=== PATIENT | male | born 1965 | race Caucasian/White ===

== ENCOUNTER 2017-11-07 10:41 | Inpatient (IN) | payer OTHER ==
[2017-11-07 10:57] VITALS: BMI 25.0
--- NOTE | 2017-11-07 14:15 | HP ---
COWS - Scale Resting Pulse: 1= [place] 81-100 Sweatin= Chills/Flushing Restless Observation: 3= Extraneous Movement Pupil Size: 0= Normal to Room Light Bone or Joint Aches: 4=Acute Joint/Muscle Pain Runny Nose/ Eye Tearin= Nasal Congestion GI Upset > 30mins: 2= Nausea/Diarrhea Tremor Observation: 1= Tremor [place], Not Seen Yawning Observation: 1= 1-2x During Session Anxiety or Irritability: 2=Irritable/Anxious Goose Flesh Skin: 0=Smooth Skin COWS Score: 16 Admission [facility] Chief Complaint: HEROIN WITHDRAWAL SX Allergies/Adverse Reactions: Allergies Allergy/AdvReac Type Severity Reaction Status Date / Time No Known Allergies Allergy Verified 11/07/17 11:17 History of Present Illness: 51 Y/O MALE WITH A HX OF HEROIN DEPENDENCE SEEKING DETOX TX. FIRST TIME HERE. Exam Limitations: No Limitations - Ebola screening Have you traveled outside of the country in the last 21 days: No Have you had contact with anyone from an Ebola affected area: No Have you been sick,other than usual withdrawal symptoms: No Do you have a fever: No - Review of Systems Constitutional: Chills, Night Sweats, Changes in sleep (WHEN DETOXING. NO MEDS BUT WILLING TO TRY BENADRYL HS) EENT: reports: Blurred Vision (READS WITH GLASSES), Tearing, Nose Congestion, Dental Problems (MISSING TEETH) Respiratory: reports: No Symptoms reported Cardiac: reports: Lightheadedness GI: reports: Constipated (OIC), Diarrhea, Nausea, Vomiting : reports: No Symptoms Reported, Other (UMBILCAL AND INGUINAL HERNIA SX ON ) Musculoskeletal: reports: Back Pain, Joint Pain (LEFT SHOULDER SX IN 09/18/17), Muscle Pain Integumentary: reports: Bruising (IVD INJ SITE SCARS ON BOTH FOREARMS), Sweating Neuro: reports: Headache, Numbness, Tingling, Dizziness Endocrine: reports: No Symptoms Reported Hematology: reports: No Symptoms Reported Psychiatric: reports: Orientated x3 Other Systems: Reviewed and Negative Patient History - Patient Medical History Hx Anemia: No Hx Asthma: No Hx Chronic Obstructive Pulmonary Disease (COPD): No Hx Cardiac Disorders: No Hx Hypertension: No Hx Hypercholesterolemia: No HX Cerebrovascular Accident: No Hx Seizures: No Hx Diabetes: No Hx Gastrointestinal Disorders: No Hx Genitourinary Disorders: No Hx Sexually Transmitted Disorders: No (DENIES) Hx Renal Disease (ESRD): No Hx Human Immunodeficiency Virus (HIV): No (NEGATIVE HX-WANTS TESTED) Hx Hepatitis C: No (DENIES-WANTS TESTED) Hx Depression: No (DENIES) Hx Suicide Attempt: No (DENIES PREVIOUS OR PRESENT S/H/I TODAY) Hx Bipolar Disorder: No Hx Schizophrenia: No - Patient Surgical History Past Surgical History: Yes Hx Abdominal Surgery: Yes (Umbillical and inguinal hernia repair.) Hx Orthopedic Surgery: Yes (R knee sx ACL and meniscus repair 2011) Other Surgical History: L shoulder sx in 09/18/17 [place] Anesthesia Reaction: No - PPD History Previous Implant?: Yes Documented Results: Negative w/o proof Implanted On Prior [facility] Admission?: No PPD to be Administered?: Yes - Reproductive History Patient is a Female of Child Bearing Age (11 -55 yrs old): No (MALE) - Smoking Cessation Smoking history: Current every day smoker Have you smoked in the past 12 months: Yes Aproximately how many cigarettes per day: 20 Hx Chewing Tobacco Use: No Initiated information on smoking cessation: Yes 'Breaking Loose' booklet given: 11/07/17 - Substance & Tx. History Hx Alcohol Use: No Hx Substance Use: Yes (HEROIN) Substance Use Type: Heroin Hx Substance Use Treatment: Yes (LAST TX AT [facility]) - Substances Abused Heroin Route: Injection Frequency: Daily Amount used: 2 bags Age of first use: 47 Date of Last Use: 11/06/17 Family Disease History - Family Disease History Family Disease History: Heart Disease: Mother (VALVE REPLACEMENT/ALZHEIMERS- ), Other: Father (ALZHEIMERS-ALIVE) Admission Physical Exam S - Vital Signs Vital Signs: Vital Signs - 24 hr 11/07/17 10:55 Temperature 97.3 F L Pulse Rate 83 Respiratory 18 Rate Blood Pressure 124/85 - Physical General Appearance: Yes: Moderate Distress, Irritable, Anxious HEENTM: Yes: EOMI, Normocephalic, RIKI, Pharynx Normal Respiratory: Yes: Chest Non-Tender, Lungs Clear, Normal Breath Sounds, No Respiratory Distress Neck: Yes: No masses,lesions,Nodules, Supple, Trachea in good position Breast: Yes: Breast Exam Deferred Cardiology: Yes: Regular Rhythm, Regular Rate, S1, S2 Abdominal: Yes: Normal Bowel Sounds, Non Tender, Flat, Soft Genitourinary: Yes: Other (N/C) Back: Yes: Within Normal Limits Musculoskeletal: Yes: full range of Motion, Gait Steady Extremities: Yes: Normal Range of Motion, Non-Tender Neurological: Yes: i o psychologist II-XII NML intact, Fully Oriented, Alert, Motor Strength 5/5 Integumentary: Yes: Dry, Warm, Track [place] (IVD INJ TRACKS ON BOTH FOREARMS-NO REDNESS OR SWELLING) - Diagnostic (1) Opioid dependence with withdrawal Current Visit: Yes Status: Acute Cleared for Admission [facility] - Detox or Rehab [facility] Level of Care: Medically Managed Detox Regimen/Protocol: Methadone [facility] Breath Alcohol Content Breath Alcohol Content: 0 Urine Drug Screen - Results Drug Screen Negative: No Urine Drug Screen Results: OPI-Opiates
[2017-11-07] MEDS ORDERED: IBUPROFEN 400 MG TABLET (FP) PO PRN (14:58)
[2017-11-07] MEDS ORDERED: NICOTINE POLACRILEX 4 MG GUM BUC PRN (14:58)
[2017-11-07] MEDS ORDERED: ACETAMINOPHEN 325 MG TABLET (FP) PO PRN (14:58)
[2017-11-07] MEDS ORDERED: LOPERAMIDE HCL 2 MG CAPSULE PO PRN (14:58)
[2017-11-07] MEDS ORDERED: P-EPHED 60MG/TRIPROLIDI 2.5MG TABLET PO PRN (14:58)
[2017-11-07] MEDS ORDERED: MAGNESIUM CITRATE 300 ML BOTTLE PO PRN (14:58)
[2017-11-07] MEDS ORDERED: MAGNESIUM HYDROX 2400MG/30ML ORAL SUSPENSION 30 ML CUP PO PRN (14:58)
[2017-11-07] MEDS ORDERED: guaiFENesin/D-METHORPHAN HB 10 ML UNIT-DOSE CUPS PO PRN (14:58)
[2017-11-07] MEDS ORDERED: MENTHOL/PHENOL 1 EACH UD MM PRN (14:58)
[2017-11-07] MEDS ORDERED: METHADONE HCL 10 MG TABLET (FOR DETOX USE ONLY) PO ONE ×2 (15:25→23:00)
[2017-11-07] MEDS: NICOTINE 21 MG/24 HOURS TOPICAL PATCH TD SCH (17:47)
[2017-11-07] MEDS ORDERED: METHADONE HCL 10 MG TABLET (FOR DETOX USE ONLY) ONE (17:53)
[2017-11-07 21:54] LABS: URINE APPEARANCE CLEAR; URINE BILIRUBIN NEGATIVE (NEGATIVE); URINE BLOOD NEGATIVE (NEGATIVE); URINE COLOR STRAW; URINE GLUCOSE (UA) NEGATIVE (NEGATIVE); URINE KETONE NEGATIVE (NEGATIVE); URINE LEUK ESTERASE NEGATIVE (NEGATIVE); URINE NITRITE NEGATIVE (NEGATIVE); URINE PROTEIN NEGATIVE (NEGATIVE); URINE UROBILINOGEN NEGATIVE mg/dL (0.2-1.0)
[2017-11-07] MEDS: THIAMINE HCL 100 MG TABLET (FP) PO SCH (22:27)
[2017-11-08 09:57] LABS: HEMATOCRIT 42.8 % (35.4-49); HEMOGLOBIN 14.3 GM/dL (11.7-16.9); MCH 29.7 pg (25.7-33.7); MCHC 33.4 g/dl (32.0-35.9); MEAN CELL VOLUME 89.2 fl (80-96); MEAN PLT VOLUME 9.1 fl (7.5-11.1); PLATELET COUNT 313 K/MM3 (134-434); RDW 12.7 % (11.9-15.9); WHITE BLOOD COUNT 10.6 K/mm3 (4.0-10.0)
[2017-11-08] MEDS ORDERED: METHADONE HCL 10 MG TABLET (FOR DETOX USE ONLY) PO ONE (10:00)
[2017-11-08] MEDS: PRENATAL VITAMINS W/ FOLIC ACID TABLET (FP) PO SCH (10:10)
[2017-11-08] MEDS: diazePAM 5 MG TABLET PO PRN ×2 (10:11→22:15)
[2017-11-08] MEDS: NICOTINE 21 MG/24 HOURS TOPICAL PATCH TD SCH (10:11)
[2017-11-08 10:12] LABS: CHLORIDE 105 mmol/L (98-107); POTASSIUM 4.3 mmol/L (3.5-5.1); SODIUM 137 mmol/L (136-145)
[2017-11-08 10:39] LABS: ALBUMIN 4.1 g/dl (3.4-5.0); ALK PHOS 126 U/L (45-117); ANION GAP 8 (8-16); BILIRUBIN,TOTAL 1.1 mg/dL (0.2-1.0); BLOOD UREA NITROGEN 17 mg/dL (7-18); CALCIUM 8.9 mg/dL (8.5-10.1); CO2 24 mmol/L (21-32); GLUCOSE,RANDOM 117 mg/dL (74-106); SGOT/AST 19 U/L (15-37); SGPT/ALT 41 U/L (12-78); TOT PROT 7.5 g/dl (6.4-8.2)
--- NOTE | 2017-11-08 17:13 | PN ---
S COWS - Scale Resting Pulse: 1= [place] 81-100 Sweatin= Chills/Flushing Restless Observation: 1= Difficult to Sit Still Pupil Size: 0= Normal to Room Light Bone or Joint Aches: 2= Severe Diffuse Aches Runny Nose/ Eye Tearin= Nasal Congestion GI Upset > 30mins: 0= None Tremor Observation of Outstretched Hands: 0= None Yawning Observation: 2= >3x During Session Anxiety or Irritability: 2=Irritable/Anxious Goose Flesh Skin: 3=Piloerection COWS Score: 13 BHS Progress Note (SOAP) Subjective: Sweating, Fatigue, Interrupted Sleep, Body Aches. Objective: PT. A & O X 3. NO ACUTE DISTRESS. 11/08/17 17:11 Vital Signs Temperature 97.7 F 11/08/17 14:17 Pulse Rate 81 11/08/17 14:17 Respiratory Rate 18 11/08/17 14:17 Blood Pressure 131/87 11/08/17 14:17 O2 Sat by Pulse Oximetry (%) Laboratory Tests 11/07/17 11/07/17 11/08/17 12:30 21:00 06:20 WBC 10.6 H RBC 4.80 Hgb 14.3 Hct 42.8 MCV 89.2 MCH 29.7 MCHC 33.4 RDW 12.7 Plt Count 313 MPV 9.1 Sodium Potassium Chloride Carbon Dioxide Anion Gap BUN Creatinine Creat Clearance w eGFR Random Glucose Calcium Total Bilirubin AST ALT Alkaline Phosphatase Total Protein Albumin Urine Color Straw Urine Appearance Clear Urine pH 5.0 Ur Specific [place] 1.006 Urine Protein Negative Urine Glucose (UA) Negative Urine Ketones Negative Urine Blood Negative Urine Nitrite Negative Urine Bilirubin Negative Urine Urobilinogen Negative Ur Leukocyte Esterase Negative RPR Titer HIV 1&2 Antibody Screen Negative HIV P24 Antigen Negative 11/08/17 11/08/17 06:20 06:20 WBC RBC Hgb Hct MCV MCH MCHC RDW Plt Count MPV Sodium 137 Potassium 4.3 Chloride 105 Carbon Dioxide 24 Anion Gap 8 BUN 17 Creatinine 1.0 Creat Clearance w eGFR > 60 Random Glucose 117 H Calcium 8.9 Total Bilirubin 1.1 H AST 19 ALT 41 Alkaline Phosphatase 126 H Total Protein 7.5 Albumin 4.1 Urine Color Urine Appearance Urine pH Ur Specific [place] Urine Protein Urine Glucose (UA) Urine Ketones Urine Blood Urine Nitrite Urine Bilirubin Urine Urobilinogen Ur Leukocyte Esterase RPR Titer Nonreactive HIV 1&2 Antibody Screen HIV P24 Antigen labs noted. Assessment: 11/08/17 17:12 WITHDRAWAL SYMPTOMS. Plan: CONTINUE DETOX.
[2017-11-08] MEDS: THIAMINE HCL 100 MG TABLET (FP) PO SCH (22:15)
[2017-11-08] MEDS: hydrOXYzine PAMOATE 50 MG CAPSULE (FP) PO PRN (22:16)
[2017-11-09] MEDS: PRENATAL VITAMINS W/ FOLIC ACID TABLET (FP) PO SCH (10:00)
[2017-11-09] MEDS ORDERED: METHADONE HCL 5 MG TABLET (FOR DETOX USE ONLY) PO ONE (10:00)
[2017-11-09] MEDS: NICOTINE 21 MG/24 HOURS TOPICAL PATCH TD SCH (10:01)
[2017-11-09] MEDS: diazePAM 5 MG TABLET PO PRN ×2 (10:01→22:03)
--- NOTE | 2017-11-09 20:20 | PN ---
BHS COWS - Scale Resting Pulse: 1= [place] 81-100 Sweatin=Flushed/Facial Moisture Restless Observation: 1= Difficult to Sit Still Pupil Size: 0= Normal to Room Light Bone or Joint Aches: 1= Mild Discomfort Runny Nose/ Eye Tearin= Nasal Congestion GI Upset > 30mins: 1= Stomach Cramp Tremor Observation of Outstretched Hands: 2= Slight Tremor Visible Yawning Observation: 1= 1-2x During Session Anxiety or Irritability: 2=Irritable/Anxious Goose Flesh Skin: 0=Smooth Skin COWS Score: 12 BHS Progress Note (SOAP) Subjective: shakes sleep disturbance anxious Objective: 11/09/17 20:19 A & O x 3 Vital Signs Temperature 96.9 F L 11/09/17 17:29 Pulse Rate 73 11/09/17 17:29 Respiratory Rate 18 11/09/17 17:29 Blood Pressure 119/80 11/09/17 17:29 O2 Sat by Pulse Oximetry (%) Assessment: 11/09/17 20:20 withdrawal sx Plan: continue detox
[2017-11-09] MEDS: THIAMINE HCL 100 MG TABLET (FP) PO SCH (22:02)
[2017-11-10] MEDS ORDERED: METHADONE HCL 5 MG TABLET (FOR DETOX USE ONLY) PO ONE (10:00)
[2017-11-10] MEDS: NICOTINE 21 MG/24 HOURS TOPICAL PATCH TD SCH (10:09)
--- NOTE | 2017-11-10 10:09 | PN ---
BHS Progress Note (SOAP) Subjective: SLIGHT ANXIETY,. FATIGUE. Objective: 11/10/17 10:08 Vital Signs Temperature 96.6 F L 11/10/17 09:58 Pulse Rate 79 11/10/17 09:58 Respiratory Rate 18 11/10/17 09:58 Blood Pressure 132/92 11/10/17 09:58 O2 Sat by Pulse Oximetry (%) Laboratory Last Values WBC 10.6 K/mm3 (4.0-10.0) H 11/08/17 06:20 RBC 4.80 M/mm3 (4.00-5.60) 11/08/17 06:20 Hgb 14.3 GM/dL (11.7-16.9) 11/08/17 06:20 Hct 42.8 % (35.4-49) 11/08/17 06:20 MCV 89.2 fl (80-96) 11/08/17 06:20 MCH 29.7 pg (25.7-33.7) 11/08/17 06:20 MCHC 33.4 g/dl (32.0-35.9) 11/08/17 06:20 RDW 12.7 % (11.9-15.9) 11/08/17 06:20 Plt Count 313 K/MM3 (134-434) 11/08/17 06:20 MPV 9.1 fl (7.5-11.1) 11/08/17 06:20 Sodium 137 mmol/L (136-145) 11/08/17 06:20 Potassium 4.3 mmol/L (3.5-5.1) 11/08/17 06:20 Chloride 105 mmol/L (98-107) 11/08/17 06:20 Carbon Dioxide 24 mmol/L (21-32) 11/08/17 06:20 Anion Gap 8 (8-16) 11/08/17 06:20 BUN 17 mg/dL (7-18) 11/08/17 06:20 Creatinine 1.0 mg/dL (0.7-1.3) 11/08/17 06:20 Creat Clearance w eGFR > 60 (>60) 11/08/17 06:20 Random Glucose 117 mg/dL (74-106) H 11/08/17 06:20 Calcium 8.9 mg/dL (8.5-10.1) 11/08/17 06:20 Total Bilirubin 1.1 mg/dL (0.2-1.0) H 11/08/17 06:20 AST 19 U/L (15-37) 11/08/17 06:20 ALT 41 U/L (12-78) 11/08/17 06:20 Alkaline Phosphatase 126 U/L (45-117) H 11/08/17 06:20 Total Protein 7.5 g/dl (6.4-8.2) 11/08/17 06:20 Albumin 4.1 g/dl (3.4-5.0) 11/08/17 06:20 Urine Color Straw 11/07/17 21:00 Urine Appearance Clear 11/07/17 21:00 Urine pH 5.0 (5.0-8.0) 11/07/17 21:00 Ur Specific [place] 1.006 (1.001-1.035) 11/07/17 21:00 Urine Protein Negative (NEGATIVE) 11/07/17 21:00 Urine Glucose (UA) Negative (NEGATIVE) 11/07/17 21:00 Urine Ketones Negative (NEGATIVE) 11/07/17 21:00 Urine Blood Negative (NEGATIVE) 11/07/17 21:00 Urine Nitrite Negative (NEGATIVE) 11/07/17 21:00 Urine Bilirubin Negative (NEGATIVE) 11/07/17 21:00 Urine Urobilinogen Negative mg/dL (0.2-1.0) 11/07/17 21:00 Ur Leukocyte Esterase Negative (NEGATIVE) 11/07/17 21:00 RPR Titer Nonreactive (NONREACTIVE) 11/08/17 06:20 Hepatitis C Antibody 0.1 s/co ratio (0.0-0.9) 11/08/17 06:20 HIV 1&2 Antibody Screen Negative 11/07/17 12:30 HIV P24 Antigen Negative 11/07/17 12:30 Assessment: 11/10/17 10:09 WITHDRAWAL SX Plan: CONTINUE DETOX
[2017-11-10] MEDS: PRENATAL VITAMINS W/ FOLIC ACID TABLET (FP) PO SCH (10:10)
[2017-11-10] MEDS: diazePAM 5 MG TABLET PO PRN (10:12)
[2017-11-10] MEDS: THIAMINE HCL 100 MG TABLET (FP) PO SCH (22:23)
[2017-11-10] MEDS: hydrOXYzine PAMOATE 50 MG CAPSULE (FP) PO PRN (22:23)
[2017-11-11] MEDS: MAG HYDROX/AL HYDROX/SIMETH 30 ML UNIT-DOSE CUP PO PRN (04:27)
[2017-11-11] MEDS ORDERED: METHADONE HCL 10 MG TABLET (FOR DETOX USE ONLY) PO ONE (10:00)
[2017-11-11] MEDS: PRENATAL VITAMINS W/ FOLIC ACID TABLET (FP) PO SCH (10:06)
[2017-11-11] MEDS: NICOTINE 21 MG/24 HOURS TOPICAL PATCH TD SCH (10:06)
--- NOTE | 2017-11-11 10:15 | PN ---
BHS Progress Note (SOAP) Subjective: ANXIETY,RESTLESSNESS,UPSET STOMACH-INDIGESTION,SLEPT ON/OFF. Objective: 11/11/17 10:13 Vital Signs Temperature 96.6 F L 11/11/17 09:59 Pulse Rate 77 11/11/17 09:59 Respiratory Rate 18 11/11/17 09:59 Blood Pressure 134/90 11/11/17 09:59 O2 Sat by Pulse Oximetry (%) Laboratory Last Values WBC 10.6 K/mm3 (4.0-10.0) H 11/08/17 06:20 RBC 4.80 M/mm3 (4.00-5.60) 11/08/17 06:20 Hgb 14.3 GM/dL (11.7-16.9) 11/08/17 06:20 Hct 42.8 % (35.4-49) 11/08/17 06:20 MCV 89.2 fl (80-96) 11/08/17 06:20 MCH 29.7 pg (25.7-33.7) 11/08/17 06:20 MCHC 33.4 g/dl (32.0-35.9) 11/08/17 06:20 RDW 12.7 % (11.9-15.9) 11/08/17 06:20 Plt Count 313 K/MM3 (134-434) 11/08/17 06:20 MPV 9.1 fl (7.5-11.1) 11/08/17 06:20 Sodium 137 mmol/L (136-145) 11/08/17 06:20 Potassium 4.3 mmol/L (3.5-5.1) 11/08/17 06:20 Chloride 105 mmol/L (98-107) 11/08/17 06:20 Carbon Dioxide 24 mmol/L (21-32) 11/08/17 06:20 Anion Gap 8 (8-16) 11/08/17 06:20 BUN 17 mg/dL (7-18) 11/08/17 06:20 Creatinine 1.0 mg/dL (0.7-1.3) 11/08/17 06:20 Creat Clearance w eGFR > 60 (>60) 11/08/17 06:20 Random Glucose 117 mg/dL (74-106) H 11/08/17 06:20 Calcium 8.9 mg/dL (8.5-10.1) 11/08/17 06:20 Total Bilirubin 1.1 mg/dL (0.2-1.0) H 11/08/17 06:20 AST 19 U/L (15-37) 11/08/17 06:20 ALT 41 U/L (12-78) 11/08/17 06:20 Alkaline Phosphatase 126 U/L (45-117) H 11/08/17 06:20 Total Protein 7.5 g/dl (6.4-8.2) 11/08/17 06:20 Albumin 4.1 g/dl (3.4-5.0) 11/08/17 06:20 Urine Color Straw 11/07/17 21:00 Urine Appearance Clear 11/07/17 21:00 Urine pH 5.0 (5.0-8.0) 11/07/17 21:00 Ur Specific [place] 1.006 (1.001-1.035) 11/07/17 21:00 Urine Protein Negative (NEGATIVE) 11/07/17 21:00 Urine Glucose (UA) Negative (NEGATIVE) 11/07/17 21:00 Urine Ketones Negative (NEGATIVE) 11/07/17 21:00 Urine Blood Negative (NEGATIVE) 11/07/17 21:00 Urine Nitrite Negative (NEGATIVE) 11/07/17 21:00 Urine Bilirubin Negative (NEGATIVE) 11/07/17 21:00 Urine Urobilinogen Negative mg/dL (0.2-1.0) 11/07/17 21:00 Ur Leukocyte Esterase Negative (NEGATIVE) 11/07/17 21:00 RPR Titer Nonreactive (NONREACTIVE) 11/08/17 06:20 Hepatitis C Antibody 0.1 s/co ratio (0.0-0.9) 11/08/17 06:20 HIV 1&2 Antibody Screen Negative 11/07/17 12:30 HIV P24 Antigen Negative 11/07/17 12:30 Assessment: 11/11/17 10:13 WITHDRAWAL SX Plan: CONTINUE DETOX BGM X 2 DAYS, START 11/12/17 R/O HYPERGLYCEMIA.
--- NOTE | 2017-11-11 13:36 | EKG ---
Test Reason : Blood Pressure : / mmHG Vent. Rate : 097 BPM Atrial Rate : 097 BPM P-R Int : 170 ms QRS Dur : 098 ms QT Int : 352 ms P-R-T Axes : 054 064 036 degrees QTc Int : 447 ms NORMAL SINUS RHYTHM POSSIBLE LEFT ATRIAL ENLARGEMENT BORDERLINE ECG NO PREVIOUS ECGS AVAILABLE Confirmed by MD Tra, Timothy ([id number] on 11/11/2017 1:36:28 PM Referred By: Confirmed By:Timothy Dutta MD
[2017-11-11] MEDS: hydrOXYzine PAMOATE 50 MG CAPSULE (FP) PO PRN (22:22)
[2017-11-11] MEDS: THIAMINE HCL 100 MG TABLET (FP) PO SCH (22:22)
[2017-11-12] MEDS: MAG HYDROX/AL HYDROX/SIMETH 30 ML UNIT-DOSE CUP PO PRN (04:36)
[2017-11-12] MEDS ORDERED: METHADONE HCL 5 MG TABLET (FOR DETOX USE ONLY) PO ONE (06:00)
[2017-11-12 06:34] VITALS: PULSE 77
[2017-11-12 09:13] VITALS: BP 132/85; TEMP 97
[2017-11-12] MEDS: NICOTINE 21 MG/24 HOURS TOPICAL PATCH TD SCH (10:10)
[2017-11-12] MEDS: PRENATAL VITAMINS W/ FOLIC ACID TABLET (FP) PO SCH (10:10)
--- NOTE | 2017-11-12 10:14 | DS ---
[facility] Detox Discharge Summary Admission Date: 11/07/17 Discharge Date: 11/12/17 - History Present History: Opioid Dependence Additional Comments: DETOX COMPLETED. ALERT O X3. NAD. REFERRED TO REHAB TODAY. Pertinent Past History: SEE DX BELOW - Physical Exam Results Vital Signs: Vital Signs Temperature 97.0 F L 11/12/17 09:13 Pulse Rate 77 11/12/17 09:13 Respiratory Rate 18 11/12/17 09:13 Blood Pressure 132/85 11/12/17 09:13 O2 Sat by Pulse Oximetry (%) Pertinent Admission Physical Exam Findings: WITHDRAWAL SX Laboratory Last Values WBC 10.6 K/mm3 (4.0-10.0) H 11/08/17 06:20 RBC 4.80 M/mm3 (4.00-5.60) 11/08/17 06:20 Hgb 14.3 GM/dL (11.7-16.9) 11/08/17 06:20 Hct 42.8 % (35.4-49) 11/08/17 06:20 MCV 89.2 fl (80-96) 11/08/17 06:20 MCH 29.7 pg (25.7-33.7) 11/08/17 06:20 MCHC 33.4 g/dl (32.0-35.9) 11/08/17 06:20 RDW 12.7 % (11.9-15.9) 11/08/17 06:20 Plt Count 313 K/MM3 (134-434) 11/08/17 06:20 MPV 9.1 fl (7.5-11.1) 11/08/17 06:20 Sodium 137 mmol/L (136-145) 11/08/17 06:20 Potassium 4.3 mmol/L (3.5-5.1) 11/08/17 06:20 Chloride 105 mmol/L (98-107) 11/08/17 06:20 Carbon Dioxide 24 mmol/L (21-32) 11/08/17 06:20 Anion Gap 8 (8-16) 11/08/17 06:20 BUN 17 mg/dL (7-18) 11/08/17 06:20 Creatinine 1.0 mg/dL (0.7-1.3) 11/08/17 06:20 Creat Clearance w eGFR > 60 (>60) 11/08/17 06:20 POC Glucometer 89 UNITS (80-120) 11/12/17 05:39 Random Glucose 117 mg/dL (74-106) H 11/08/17 06:20 Calcium 8.9 mg/dL (8.5-10.1) 11/08/17 06:20 Total Bilirubin 1.1 mg/dL (0.2-1.0) H 11/08/17 06:20 AST 19 U/L (15-37) 11/08/17 06:20 ALT 41 U/L (12-78) 11/08/17 06:20 Alkaline Phosphatase 126 U/L (45-117) H 11/08/17 06:20 Total Protein 7.5 g/dl (6.4-8.2) 11/08/17 06:20 Albumin 4.1 g/dl (3.4-5.0) 11/08/17 06:20 Urine Color Straw 11/07/17 21:00 Urine Appearance Clear 11/07/17 21:00 Urine pH 5.0 (5.0-8.0) 11/07/17 21:00 Ur Specific [place] 1.006 (1.001-1.035) 11/07/17 21:00 Urine Protein Negative (NEGATIVE) 11/07/17 21:00 Urine Glucose (UA) Negative (NEGATIVE) 11/07/17 21:00 Urine Ketones Negative (NEGATIVE) 11/07/17 21:00 Urine Blood Negative (NEGATIVE) 11/07/17 21:00 Urine Nitrite Negative (NEGATIVE) 11/07/17 21:00 Urine Bilirubin Negative (NEGATIVE) 11/07/17 21:00 Urine Urobilinogen Negative mg/dL (0.2-1.0) 11/07/17 21:00 Ur Leukocyte Esterase Negative (NEGATIVE) 11/07/17 21:00 RPR Titer Nonreactive (NONREACTIVE) 11/08/17 06:20 Hepatitis C Antibody 0.1 s/co ratio (0.0-0.9) 11/08/17 06:20 HIV 1&2 Antibody Screen Negative 11/07/17 12:30 HIV P24 Antigen Negative 11/07/17 12:30 - Treatment Hospital Course: Detox Protocol Followed, Detoxed Safely, Responded well, Discharged Condition Good, Rehab Referral Accepted Patient has Accepted a Rehab Referral to: [facility] - Medication Discharge Medications: Ambulatory Orders NK [No Known Home Medication] 11/07/17 - Diagnosis (1) Opioid dependence with withdrawal Current Visit: Yes Status: Acute - AMA Did Patient Leave Against Medical Advice: No
== END 2017-11-12 10:30 | disposition other institution (70) | DRG 773 ==
LOC: YASAS 10:41 → Y3N 15:16
PROVIDERS: ADMIT Internal Medicine; ATTEND Internal Medicine
PROC: HZ2ZZZZ Detoxification Services for Substance Abuse Treatment (ICD-10-PCS; principal; 2017-11-07)
DX: F11.23 Opioid dependence with withdrawal (principal); F17.210 Nicotine dependence, cigarettes, uncomplicated
CPT/HCPCS: 36415; 80053; 81003; 82962; 85027; 86593; 86803; 87389; 93005; 93010